=== PATIENT | female | born 1965 ===

== ENCOUNTER 2024-11-06 05:06 | Emergency (ER) | payer OTHER ==
[~2024-11-06] VITALS: Ht 165.1 cm; Wt 91.0 kg
--- NOTE | 2024-11-06 06:19 | ED.PDOC ---
Epistaxis- HPI HPI Comments 59-year-old female presents here status post epistaxis. Patient states she had woken up and was on her way to the kitchen to get some coffee when she had profuse bleeding from her nose. She states it was very significant she was passing significant amount of blood and large clots. Ultimately paramedics was called. She states she has never had a similar nosebleed. She does take aspirin occasionally once every 2 months and last aspirin use was proximally 1 month ago. Patient does have a known history of high blood pressure for which she takes lisinopril. She states her blood pressure is normally in the 160/170 range. Denies any current shortness of breath or dizziness. Denies any chest pain. Upon solar field installation crew member arrival nasal compression was applied. She states bleeding stopped proximally 5-7 minutes ago. Patient was found to have initial blood pressure 199/150 here in the ER. Chief Complaint: Nose Bleed Time Seen by MD: 06:18 Reviewed Notes: Medications, Allergies Allergies: Coded Allergies: NO KNOWN ALLERGIES (Unverified , 11/06/24) Information Source: Patient, Emergency Med Personnel Mode of Arrival: EMS Severity: Bleeding Controlled Timing: Hours Duration: Since onset Prehospital treatment: None Mechanism: Spontaneous onset Use of: Aspirin (2 months ago) History of: HTN Nose: Normal Nose: Intranasal/Septum: Blood Bleeding Status: No active bleeding Bleeding Amount: Mild Source: Both Associated signs and symptoms: None Past Medical History PAST MEDICAL HISTORY: HTN Surgical History: Denies all surgeries [employer] History: No Pertinent [employer] History Family History Family History: Reviewed,noncontributory to illness, No family hx of Cancer, No family hx of DM, No family hx of Heart reese, No family hx of HTN, No family hx ofKidney reese, No family hx of Liver reese, No family hx of Lung reese, No family hx of Stroke Social History Smoker: Non-Smoker Alcohol: Denies ETOH Use Drugs: Denies Drug Use Lives In: Home Constitutional: denies: chills, diaphoresis, fatigue, fever, malaise, sweats, weakness, others EENTM: reports: nose bleeding; denies: blurred vision, double vision, ear bleeding, ear discharge, ear drainage, ear pain, ear ringing, eye pain, eye redness, hearing loss, mouth pain, mouth swelling, nasal discharge, nose congestion, nose pain, photophobia, tearing, throat pain, throat swelling, voice changes, others Respiratory: denies: cough, hemoptysis, orthopnea, SOB at rest, shortness of breath, SOB with excertion, stridor, wheezing, others Cardiovascular: denies: chest pain, dizzy spells, diaphoresis, Dyspnea on exertion, edema, irregular heart beat, left arm pain, lightheadedness, palpitations, PND, syncope, others Gastrointestinal: denies: abdomen distended, abdominal pain, blood streaked bowels, constipated, diarrhea, dysphagia, difficulty swallowing, hematemesis, melena, nausea, poor appetite, poor fluid intake, rectal bleeding, rectal pain, vomiting, others Genitourinary: denies: abnormal vagina bleeding, burning, dyspareunia, dysuria, flank pain, frequency, hematuria, incontinence, pain, , vagina discharge, urgency, others Neurological: denies: dizziness, fainting, headache, left sided numbness, left sided weakness, numbness, paresthesia, pre-existing deficit, right sided numbness, right sided weakness, seizure, speech problems, tingling, tremors, weakness, others Musculoskeletal: denies: back pain, gout, joint pain, joint swelling, muscle pain, muscle stiffness, neck pain, others Integumetry: denies: bruises, change in color, change in hair/nails, dryness, laceration, lesions, lumps, rash, wounds, others Allergic/Immunocompromised: denies: Difficulty Healing, Frequent Infections, Hives, Itching, others Hematologic/Lymphatic: denies: anemia, blood clots, easy bleeding, easy bruising, swollen glands, others Endocrine: denies: excessive hunger, excessive sweating, excessive thirst, excessive urination, flushing, intolerance to cold, intolerance to heat, unexplained weight gain, unexplained weight loss, others Psychiatric: denies: anxiety, bipolar disorder, depression, hopeless, panic disorder, schizophrenia, sleepless, suicidal, others All Other Systems: Reviewed and Negative Physical Exam General Appearance: No Apparent Distress, Normal HEENT: Normal ENT Inspection, Pharynx Normal, TMs Normal, Other (No active bleeding from the nares.) Neck: Full Range of Motion, Non-Tender, Normal, Normal Inspection Respiratory: Chest Non-Tender, Lungs Clear, No Accessory Muscle Use, No Respiratory Distress, Normal Breath Sounds Cardiovascular: Normal Peripheral Pulses, Regular Rate/Rhythm Breast Exam: Deferred Gastrointestinal: Non Tender, Normal Bowel Sounds, Soft Genitalia: Deferred Pelvic: Deferred Rectal: Deferred Extremities: No calf tenderness, Normal capillary refill, Normal inspection, Normal range of motion, Non-tender, No pedal edema Musculoskeletal : Apperance: Normal Neurologic: Alert, No Motor Deficits, Normal Affect, Normal Mood, No Sensory Deficits Cerebellar Function: Normal Reflexes: Normal Skin: Dry, Normal Color, Warm Lymphatic: No Adenopathy Was a procedure done? Was a procedure done?: No Differential Diagnosis (NSB) Differential Diagnosis: Anterior Nasal Bleed, Posterior Nasal Bleed, Foreign Body, Hypertension, Coagulopathy X-Ray, Labs, Meds, VS Vital Signs Date Time Temp Pulse Resp B/P (MAP) Pulse Ox O2 Delivery O2 Flow Rate FiO2 11/06/24 06:36 165/96 11/06/24 05:36 Room Air* 0 21 11/06/24 05:36 199/102 11/06/24 05:36 97.2 79 14 199/102 (134) 99 97.2 11/06/24 05:06 98.0 70 24 198/150 98 98.0 Lab Test 11/06/24 07:22 Range/Units White Blood Count 5.2 4.4-10.8 10^3/uL Red Blood Count 4.36 4.0-5.20 10^6/uL Hemoglobin 13.6 12.2-16.2 g/dL Hematocrit 39.0 36.0-46.0 % Mean Corpuscular Volume 89.6 80.0-100.0 fL Mean Corpuscular Hemoglobin 31.1 28.0-32.0 pg Mean Corpuscular Hemoglobin Concent 34.7 32.0-36.0 g/dL Red Cell Distribution Width 14.5 H 11.8-14.3 % Platelet Count 208 140-450 10^3/uL Mean Platelet Volume 8.5 6.9-10.8 fL Neutrophils (%) (Auto) 65.6 37.0-80.0 % Lymphocytes (%) (Auto) 20.5 10.0-50.0 % Monocytes (%) (Auto) 12.7 H 0.0-12.0 % Eosinophils (%) (Auto) 0.9 0.0-7.0 % Basophils (%) (Auto) 0.3 0.0-2.0 % Neutrophils # (Auto) 3.4 1.6-8.6 10 ^3/uL Lymphocytes # (Auto) 1.1 0.4-5.4 10 ^3/uL Monocytes # (Auto) 0.7 0-1.3 10 ^3/uL Eosinophils # (Auto) 0 0-0.8 10 ^3/uL Basophils # (Auto) 0 0-0.2 10 ^3/uL Nucleated Red Blood Cells 0.0 % Sodium Level 141 136-145 mmol/L Potassium Level 4.5 3.5-5.1 mmol/L Chloride Level 107 98-107 mmol/L Carbon Dioxide Level 24 20-31 mmol/L Anion Gap 10 5-15 Blood Urea Nitrogen 19 9-23 mg/dL Creatinine 1.00 0.550-1.02 mg/dL Glomerular Filtration Rate Calc 65 >90 mL/min BUN/Creatinine Ratio 19.0 10.0-20.0 Serum Glucose 133 H 74-106 mg/dL Calcium Level 9.2 8.7-10.4 mg/dL Current Medications Medications (Trade) Dose Ordered Sig/Christofer Route Start Time Stop Time Status Last Admin Clonidine HCl (Catapres Tablet) 0.2 mg ONCE ONCE PO 11/06/24 05:30 11/06/24 05:31 DC 11/06/24 05:36 59-year-old female presents here with epistaxis. She states the epistaxis profu se therefore 911 was called. Nasal compression was applied by solar field installation crew member and here in the ER. Upon my evaluation of the patient, bleeding had stopped. At this time there was no active bleeding. I did note that her initial blood pressure in the ER was 198/150. She was given clonidine 0.2 mg here in the ER. Repeat blood pressure on my evaluation is 176/95 which is significantly improved and likely closer to her normal baseline which states a systolic 160s 170s. I suspect that her extremely high blood pressure and contribution with her occasional aspirin use is likely what caused her bleeding this morning. She also states that she was using a fan to her face last night and often does. Patient declines any dizziness or shortness of breath. However she is requesting blood work to performed as she is extremely afraid of the event that hurt occurred this morning. She has no history of prior bleeding such and she also does not have any significant family history of bleeding. At this time a CBC and BMP has been ordered. CBC and BMP have returned. At this time there was no evidence of a anemia. Hemoglobin is 13.6. Blood pressure continues to be controlled at 165/96. Advised patient to use a humidifier in her room. Not keep the fan directly on her and take her antihypertensive medications as prescribed. Advised her if she runs into any issues to return back to the ER if symptoms worsen or persist to ortho to follow up with the PCP in 2-3 days. Patient agreeable. Time of 1ST Reevaluation: 06:48 Reevaluation 1ST: Unchanged Patient Education/Counseling: Diagnosis, Treatment Family Education/Counseling: No Family Present Departure 1 Departure Time of Disposition: 08:11 Impression: Primary Impression: Epistaxis Additional Impression: Hypertensive urgency Disposition: 01 HOME / SELF CARE / HOMELESS Condition: Stable Additional Instructions: Return back to the ER if symptoms worsen or persist. Follow up with the primary care physician. It is very important you take your blood pressure medications as prescribed as her blood pressure was found to be very high today. Discharged With: Self Critical Care Note Critical Care Time?: No Stability Stability form required: No Heart Score Heart Score: Heart Score Response (Comments) Value History N/A 0 EKG N/A 0 Age N/A 0 Risk Factors N/A 0 Troponin N/A 0 Total 0 I personally scribed for QUINTON PHAM MD ([email or web address]) on 11/06/24 at 06:19. Electronically submitted by Adalgisa Mclean ([email or web address]). I personally scribed for QUINTON PHAM MD ([email or web address]) on 11/06/24 at 06:22. Electronically submitted by Adalgisa Mclean ([email or web address]). I personally scribed for QUINTON PHAM MD ([email or web address]) on 11/06/24 at 06:56. Electronically submitted by Adalgisa Mclean ([email or web address]). QUINTON PHAM MD Nov 06, 2024 06:19
[2024-11-06 07:41] LABS: Hematocrit 39.0 % (36.0-46.0); Hemoglobin 13.6 g/dL (12.2-16.2); Mean Corpuscular Hemoglobin 31.1 pg (28.0-32.0); Mean Corpuscular Volume 89.6 fL (80.0-100.0); Nucleated Red Blood Cells % 0.0 %
[2024-11-06 07:42] LABS: Chloride 107 mmol/L (98-107); Potassium 4.5 mmol/L (3.5-5.1); Sodium 141 mmol/L (136-145)
[2024-11-06 07:43] LABS: Anion Gap 10 (5-15); Calcium 9.2 mg/dL (8.7-10.4); Carbon Dioxide 24 mmol/L (20-31)
[2024-11-06 07:48] LABS: BUN/Creatinine Ratio 19.0 (10.0-20.0); Blood Urea Nitrogen 19 mg/dL (9-23)
[2024-11-06 07:49] LABS: Glucose 133 mg/dL (74-106)
[2024-11-06 08:00] VITALS: PULSE 70; RESP 17; TEMP 98.1; O2SAT 94
[2024-11-06] MEDS: OXYMETAZOLINE HCL 0.05 % NASAL SPRAY 15ML EACHNOSTRI ONE (08:56)
[2024-11-06 09:50] VITALS: BP 132/92; PULSE 65; RESP 13; O2SAT 97
== END 2024-11-06 10:05 | disposition home or self-care (01) ==
LOC: EDSEX 05:06 → ER 05:06 → EDBD 05:06 → ER 10:05
DX: R04.0 Epistaxis (principal); I16.0 Hypertensive urgency; I10 Essential (primary) hypertension; Z88.6 Allergy status to analgesic agent
CPT/HCPCS: 36415; 80048; 85025